=== PATIENT | female | born 1975 | race American Indian/Alaskan Native ===

== ENCOUNTER 2016-08-09 16:35 | Emergency (ER) | payer MEDICAID, OTHER ==
[2016-08-09 17:17] VITALS: BP 133/90
--- NOTE | 2016-08-09 17:41 | Emergency Department Report ---
ED General Adult HPI - General Chief complaint: Extremity Injury, Lower Stated complaint: LEFT ANKLE/SWOLLEN/ PREV BROKEN IN SUMMER Time Seen by Provider: 08/09/16 17:21 Source: patient Mode of arrival: Ambulatory Limitations: No Limitations - History of Present Illness Initial comments: 41 year old female presents with left ankle pain for past 2 days without injury. states that she had broken her left ankle about 7 months ago and had surgery. denies new injury. denies taking medication. - Related Data Previous Rx's Medication Instructions Recorded Last Taken Type Vit-Fe Fumar-FA [ 1 each PO QDAY #30 tablet 01/03/14 Unknown Rx Vitamin] metroNIDAZOLE [Flagyl] 500 mg PO Q12HR #14 tab 01/17/16 Unknown Rx traMADol [Ultram 50 MG tab] 50 mg PO Q6HR PRN #14 tablet 08/09/16 Unknown Rx Allergies Allergy/AdvReac Type Severity Reaction Status Date / Time amoxicillin trihydrate AdvReac Swelling Verified 01/03/14 01:11 [From Amoxil] ED Review of Systems ROS: Stated complaint: LEFT ANKLE/SWOLLEN/ PREV BROKEN IN SUMMER Other details as noted in HPI Constitutional: denies: chills, fever Eyes: denies: eye pain, eye discharge, vision change ENT: denies: ear pain, throat pain Respiratory: denies: cough, shortness of breath, wheezing Cardiovascular: denies: chest pain, palpitations Endocrine: no symptoms reported Gastrointestinal: denies: abdominal pain, nausea, diarrhea Genitourinary: denies: urgency, dysuria, discharge Musculoskeletal: arthralgia. denies: back pain, joint swelling Skin: denies: rash, lesions Neurological: denies: headache, weakness, paresthesias Psychiatric: denies: anxiety, depression Hematological/Lymphatic: denies: easy bleeding, easy bruising ED Past Medical Hx - Past Medical History Previous Medical History?: Yes Hx Asthma: Yes - Surgical History Past Surgical History?: Yes Additional Surgical History: D&C,TUBAL LIGATION - Social History Smoking Status: Current Every Day Smoker Substance Use Type: None - Medications Home Medications: Home Medications Medication Instructions Recorded Confirmed Last Taken Type Vit-Fe Fumar-FA [ 1 each PO QDAY #30 tablet 01/03/14 Unknown Rx Vitamin] metroNIDAZOLE [Flagyl] 500 mg PO Q12HR #14 tab 01/17/16 Unknown Rx traMADol [Ultram 50 MG tab] 50 mg PO Q6HR PRN #14 tablet 08/09/16 Unknown Rx ED Physical Exam - General Limitations: No Limitations General appearance: alert, in no apparent distress - Head Head exam: Present: atraumatic, normocephalic - Eye Eye exam: Present: normal appearance - ENT ENT exam: Present: mucous membranes moist - Neck Neck exam: Present: normal inspection - Respiratory Respiratory exam: Present: normal lung sounds bilaterally. Absent: respiratory distress - Cardiovascular Cardiovascular Exam: Present: regular rate, normal rhythm. Absent: systolic murmur, diastolic murmur, rubs, gallop - GI/Abdominal GI/Abdominal exam: Present: soft, normal bowel sounds - Extremities Exam Extremities exam: Present: normal inspection, other (left ankle mild swelling and tenderness. full rom. no erythema.) - Back Exam Back exam: Present: normal inspection - Neurological Exam Neurological exam: Present: alert, oriented X3 - Psychiatric Psychiatric exam: Present: normal affect, normal mood - Skin Skin exam: Present: warm, dry, intact, normal color. Absent: rash ED Course Vital Signs 08/09/16 17:14 Temperature 98.5 F Pulse Rate 88 Respiratory 16 Rate Blood Pressure 133/90 O2 Sat by Pulse 100 Oximetry ED Medical Decision Making - Medical Decision Making patient in NAD at this time. VSS for DC. Critical care attestation.: If time is entered above; I have spent that time in minutes in the direct care of this critically ill patient, excluding procedure time. ED Disposition Clinical Impression: Left ankle pain Disposition: DISCHARGED TO HOME OR SELFCARE Is pt being admited?: No Does the pt Need Aspirin: No Condition: Good Instructions: Arthralgia (ED) Prescriptions: traMADol [Ultram 50 MG tab] 50 mg PO Q6HR PRN #14 tablet PRN Reason: Pain Referrals: SONIA ZAVALETA MD [Staff Physician] - 3-5 Days Forms: Work/School Release Form(ED) Time of Disposition: 17:42
== END 2016-08-09 18:45 | disposition home or self-care (01) ==
LOC: ED 16:35
DX: M25.572 Pain in left ankle and joints of left foot (principal); J45.909 Unspecified asthma, uncomplicated; F17.200 Nicotine dependence, unspecified, uncomplicated; Z88.1 Allergy status to other antibiotic agents
CPT/HCPCS: 99282

== ENCOUNTER 2016-11-02 05:10 | Emergency (ER) | payer SELFPAY ==
[2016-11-02 05:40] LABS: Basophils % (Auto) 0.4 % (0.0-1.8); Eosinophils % (Auto) 1.8 % (0.0-4.3); Hematocrit 32.6 % (30.3-42.9); Hemoglobin 10.8 gm/dl (10.1-14.3); Mean Corpuscular HGB Conc 33 % (30-34); Mean Corpuscular Hemoglobin 24 pg (28-32); Mean Corpuscular Volume 72 fl (79-97); Platelet Count 234 K/mm3 (140-440); Red Blood Count 4.51 M/mm3 (3.65-5.03); White Blood Count 5.9 K/mm3 (4.5-11.0)
[2016-11-02 05:57] LABS: Alanine Aminotransferase 14 units/L (7-56); Albumin 3.8 g/dL (3.9-5); Albumin/Globulin Ratio 1.3 %; Alkaline Phosphatase 69 units/L (35-129); Anion Gap 16 mmol/L; BUN/Creatinine Ratio 12.85; Blood Urea Nitrogen 9 mg/dL (7-17); Calcium 8.8 mg/dL (8.4-10.2); Carbon Dioxide 24 mmol/L (22-30); Chloride 104.6 mmol/L (98-107); Glucose 118 mg/dL (65-100); Lipase 51 units/L (13-60); Potassium 3.6 mmol/L (3.6-5.0); Sodium 141 mmol/L (137-145); Total Protein 6.8 g/dL (6.3-8.2)
--- NOTE | 2016-11-02 06:35 | Emergency Department Report ---
ED Abdominal Pain HPI - General Chief Complaint: Abdominal Pain Stated Complaint: ABD PAIN Time Seen by Provider: 11/02/16 06:34 Source: patient Mode of arrival: Ambulatory Limitations: No Limitations - History of Present Illness Initial Comments: Patient complains of vague lower abdominal pain which is associated with this cycle bleeding. She states that she has heavy periods in general. She does not have a bag printer. She came by EMS yesterday for further care and evaluation. She denies fever or chills. She is not nauseated. The pain is subsided chest at the time of my encounter. -: Gradual, hour(s) Location: LLQ, RLQ Radiation: none Migration to: no migration Severity: moderate Severity scale (0 -10): 5 Quality: cramping Consistency: intermittent, now resolved Improves With: nothing Worsens With: nothing Associated Symptoms: denies other symptoms - Related Data Home Medications Medication Instructions Recorded Confirmed Last Taken Naproxen Sodium [Aleve TAB] 220 mg PO Q6H PRN 11/02/16 11/02/16 11/02/16 Allergies Allergy/AdvReac Type Severity Reaction Status Date / Time amoxicillin trihydrate AdvReac Swelling Verified 01/03/14 01:11 [From Amoxil] ED Review of Systems ROS: Stated complaint: ABD PAIN Other details as noted in HPI Constitutional: denies: chills, fever Eyes: denies: eye pain, eye discharge, vision change ENT: denies: ear pain, throat pain Respiratory: denies: cough, shortness of breath, wheezing Cardiovascular: denies: chest pain, palpitations Endocrine: no symptoms reported Gastrointestinal: as per HPI, abdominal pain. denies: nausea, diarrhea Genitourinary: denies: urgency, dysuria, discharge Musculoskeletal: denies: back pain, joint swelling, arthralgia Skin: denies: rash, lesions Neurological: denies: headache, weakness, paresthesias Psychiatric: denies: anxiety, depression Hematological/Lymphatic: denies: easy bleeding, easy bruising ED Past Medical Hx - Past Medical History Previous Medical History?: Yes Hx Asthma: Yes - Surgical History Past Surgical History?: Yes Additional Surgical History: D&C,TUBAL LIGATION - Social History Smoking Status: Current Every Day Smoker Substance Use Type: Alcohol - Medications Home Medications: Home Medications Medication Instructions Recorded Confirmed Last Taken Type Naproxen Sodium [Aleve TAB] 220 mg PO Q6H PRN 11/02/16 11/02/16 11/02/16 History ED Physical Exam - General Limitations: No Limitations General appearance: alert, in no apparent distress - Head Head exam: Present: atraumatic, normocephalic - Eye Eye exam: Present: normal appearance. Absent: scleral icterus - ENT ENT exam: Present: mucous membranes moist - Neck Neck exam: Present: normal inspection - Respiratory Respiratory exam: Present: normal lung sounds bilaterally. Absent: respiratory distress - Cardiovascular Cardiovascular Exam: Present: regular rate, normal rhythm. Absent: systolic murmur, diastolic murmur, rubs, gallop - GI/Abdominal GI/Abdominal exam: Present: soft, normal bowel sounds. Absent: distended, tenderness, guarding, rebound, rigid - Extremities Exam Extremities exam: Present: normal inspection - Back Exam Back exam: Present: normal inspection - Neurological Exam Neurological exam: Present: alert, oriented X3, CN II-XII intact. Absent: motor sensory deficit - Psychiatric Psychiatric exam: Present: normal affect, normal mood - Skin Skin exam: Present: warm, dry, intact, normal color. Absent: rash ED Course Vital Signs 11/02/16 11/02/16 05:12 06:10 Temperature 98.8 F Pulse Rate 79 Respiratory 20 18 Rate Blood Pressure 135/89 [Right] O2 Sat by Pulse 100 97 Oximetry - Reevaluation(s) Reevaluation #1: Patient given analgesia. She Continues to look clinically well. She is discharged in stable condition to follow up with a bag printer. 11/02/16 10:00 ED Medical Decision Making - Lab Data Result diagrams: 11/02/16 05:13 11/02/16 05:13 Laboratory Results - last 24 hr 11/02/16 11/02/16 11/02/16 05:13 05:13 05:13 WBC 5.9 RBC 4.51 Hgb 10.8 Hct 32.6 MCV 72 L MCH 24 L MCHC 33 RDW 20.0 H Plt Count 234 Lymph % (Auto) 39.4 H [place] % (Auto) 12.0 H Eos % (Auto) 1.8 Baso % (Auto) 0.4 Lymph # 2.3 [place] # 0.7 Eos # 0.1 Baso # 0.0 Seg Neutrophils % 46.4 Seg Neutrophils # 2.8 Sodium 141 Potassium 3.6 Chloride 104.6 Carbon Dioxide 24 Anion Gap 16 BUN 9 Creatinine 0.7 Estimated GFR > 60 BUN/Creatinine Ratio 12.85 Glucose 118 H Calcium 8.8 Total Bilirubin 0.20 AST 16 ALT 14 Alkaline Phosphatase 69 Total Protein 6.8 Albumin 3.8 L Albumin/Globulin Ratio 1.3 Lipase 51 HCG, Qual Negative - Radiology Data interpreted by me: Ultrasound showed ovarian cyst bilaterally but no free or cul-de-sac fluid. Critical care attestation.: If time is entered above; I have spent that time in minutes in the direct care of this critically ill patient, excluding procedure time. ED Disposition Clinical Impression: Dysfunctional uterine bleeding Ovarian cyst Qualifiers: Laterality: bilateral Qualified Code(s): N83.201 - Unspecified ovarian cyst, right side; N83.202 - Unspecified ovarian cyst, left side Disposition: DISCHARGED TO HOME OR SELFCARE Is pt being admited?: No Does the pt Need Aspirin: No Condition: Stable Instructions: Abdominal Pain (ED), Ovarian Cyst (ED) Additional Instructions: Rx as needed for pain. Return to the emergency department any acute change or problem. Follow-up with gynecology referral. Referrals: PRIMARY CARE [Primary Care Provider] - 3-5 Days Time of Disposition: 10:03
[2016-11-02] MEDS ORDERED: ZOFRAN IV ONE (06:54)
[2016-11-02] MEDS ORDERED: MORPHINE IV ONE (06:54)
[2016-11-02 07:01] LABS: Bilirubin,Urine NEG (Negative); Blood,Urine LG (Negative); Ketones,Urine NEG (Negative); Leukocyte Esterase,Urine NEG (Negative); Nitrite,Urine NEG (Negative)
--- NOTE | 2016-11-02 09:48 | Ultrasound Report ---
Transabdominal and transvaginal pelvic ultrasound. History: Pelvic pain. Findings: The uterus is normal in size and configuration. The endometrial echo is normal measuring 8.7 mm in thickness. An 8 mm cyst is seen anterior to the cervix. The ovaries are normal in size. There is a 1 cm cyst in the left ovary. In the right ovary, there is a 2 cm complex lesion probably representing complex cysts. There is no fluid within the cul-de-sac. Impression: 1 cm left ovarian cyst. A complex cyst measuring 2 cm in diameter is seen in the right ovary.
[2016-11-02 10:22] VITALS: BP 109/59
== END 2016-11-02 10:53 | disposition home or self-care (01) ==
LOC: ED 05:10
DX: N83.201 Unspecified ovarian cyst, right side (principal); N93.8 Other specified abnormal uterine and vaginal bleeding; J45.909 Unspecified asthma, uncomplicated; F17.200 Nicotine dependence, unspecified, uncomplicated; Z98.890 Other specified postprocedural states; Z98.51 Tubal ligation status; Z88.1 Allergy status to other antibiotic agents
CPT/HCPCS: 36415; 76830; 76856; 80053; 81001; 83690; 84703; 85025; 96374; 96375; 99284; J2270; J2405

== ENCOUNTER 2016-12-09 20:15 | Emergency (ER) | payer SELFPAY ==
[2016-12-10] MEDS ORDERED: CLEOCIN PO ONE (00:45)
[2016-12-10] MEDS ORDERED: TYLENOL #3 PO ONE (00:45)
--- NOTE | 2016-12-10 00:46 | Emergency Department Report ---
ED ENT HPI - General Chief complaint: Dental/Oral Stated complaint: ORAL/FACIAL SWELLING Time Seen by Provider: 12/10/16 00:35 Source: patient Mode of arrival: Ambulatory Limitations: No Limitations - History of Present Illness Initial comments: 41-year-old female past medical history periodontal disease, asthma presents with complaint of left-sided toothache 2 days. Patient states that she has multiple severe cavities which have yet to be addressed by a dentist. States she has a appointment within the next 2 weeks with a dentist. Patient speaking in full sentences states she has had slight pus drainage from in her left lower gum region. Mild visible facial swelling on left side. No trismus no stridor patient denies any difficulty swallowing or difficulty speaking. MD complaint: tooth pain Onset/Timin -: days(s) Location: tooth # (20) 1 - midl swelling here, severely caried teeth Severity scale (0 -10): 6 Quality: aching Consistency: constant Improves with: none Worsens with: eating Context- Dental: history of dental caries, poor dental care Associated Symptoms: gum swelling - Related Data Previous Rx's Medication Instructions Recorded Last Taken Type Acetaminophen/Codeine [Tylenol 1 tab PO Q6H PRN #14 tab 12/10/16 Unknown Rx /Codeine # 3 tab] Chlorhexidine Mouthwash [Peridex] 118 ml MM BID #1 bottle 12/10/16 Unknown Rx Clindamycin [Clindamycin CAP] 300 mg PO Q6H #28 capsule 12/10/16 Unknown Rx Ibuprofen [Motrin] 800 mg PO Q8HR PRN #30 tablet 12/10/16 Unknown Rx Allergies Allergy/AdvReac Type Severity Reaction Status Date / Time amoxicillin trihydrate AdvReac Swelling Verified 01/03/14 01:11 [From Amoxil] ED Dental HPI - General Chief complaint: Dental/Oral Stated complaint: ORAL/FACIAL SWELLING Time Seen by Provider: 12/10/16 00:35 Source: patient Mode of arrival: Ambulatory Limitations: No Limitations - Related Data Previous Rx's Medication Instructions Recorded Last Taken Type Acetaminophen/Codeine [Tylenol 1 tab PO Q6H PRN #14 tab 12/10/16 Unknown Rx /Codeine # 3 tab] Chlorhexidine Mouthwash [Peridex] 118 ml MM BID #1 bottle 12/10/16 Unknown Rx Clindamycin [Clindamycin CAP] 300 mg PO Q6H #28 capsule 12/10/16 Unknown Rx Ibuprofen [Motrin] 800 mg PO Q8HR PRN #30 tablet 12/10/16 Unknown Rx Allergies Allergy/AdvReac Type Severity Reaction Status Date / Time amoxicillin trihydrate AdvReac Swelling Verified 01/03/14 01:11 [From Amoxil] ED Review of Systems ROS: Stated complaint: ORAL/FACIAL SWELLING Other details as noted in HPI Constitutional: denies: chills, fever Eyes: denies: eye pain, eye discharge, vision change ENT: dental pain. denies: ear pain, throat pain Respiratory: denies: cough, shortness of breath, wheezing Cardiovascular: denies: chest pain, palpitations Endocrine: no symptoms reported Gastrointestinal: denies: abdominal pain, nausea, diarrhea Genitourinary: denies: urgency, dysuria, discharge Musculoskeletal: denies: back pain, joint swelling, arthralgia Skin: denies: rash, lesions Neurological: denies: headache, weakness, paresthesias Psychiatric: denies: anxiety, depression Hematological/Lymphatic: denies: easy bleeding, easy bruising ED Past Medical Hx - Past Medical History Previous Medical History?: Yes Hx Asthma: Yes - Surgical History Past Surgical History?: Yes Additional Surgical History: D&C,TUBAL LIGATION - Social History Smoking Status: Current Every Day Smoker Substance Use Type: None - Medications Home Medications: Home Medications Medication Instructions Recorded Confirmed Last Taken Type Acetaminophen/Codeine [Tylenol 1 tab PO Q6H PRN #14 tab 12/10/16 Unknown Rx /Codeine # 3 tab] Chlorhexidine Mouthwash [Peridex] 118 ml MM BID #1 bottle 12/10/16 Unknown Rx Clindamycin [Clindamycin CAP] 300 mg PO Q6H #28 capsule 12/10/16 Unknown Rx Ibuprofen [Motrin] 800 mg PO Q8HR PRN #30 tablet 12/10/16 Unknown Rx ED Physical Exam - General Limitations: No Limitations General appearance: alert, in no apparent distress - Head Head exam: Present: atraumatic, normocephalic - Expanded Head Exam Expanded 1 - mild swelling here - Eye Eye exam: Present: normal appearance - ENT ENT exam: Present: mucous membranes moist - Expanded ENT Exam Expanded Teeth exam: Present: dental caries, dental tenderness # (20, 19), gingival enlargement, other (no clinical signs of ludwigs angina, no tenderness floor of mouth) 1 - Dental Tenderness, Other (gumline swelling) - Neck Neck exam: Present: normal inspection, full ROM - Respiratory Respiratory exam: Present: normal lung sounds bilaterally. Absent: respiratory distress - Cardiovascular Cardiovascular Exam: Present: regular rate, normal rhythm. Absent: systolic murmur, diastolic murmur, rubs, gallop - GI/Abdominal GI/Abdominal exam: Present: soft, normal bowel sounds - Extremities Exam Extremities exam: Present: normal inspection - Back Exam Back exam: Present: normal inspection - Neurological Exam Neurological exam: Present: alert, oriented X3 - Psychiatric Psychiatric exam: Present: normal affect, normal mood - Skin Skin exam: Present: warm, dry, intact, normal color. Absent: rash ED Course Vital Signs 12/09/16 20:44 Temperature 99.7 F H Pulse Rate 95 H Respiratory 18 Rate Blood Pressure 140/95 O2 Sat by Pulse 98 Oximetry ED Medical Decision Making - Medical Decision Making A/P: Dental cavity, dental abscess 1-Motrin, Tylenol 3, clindamycin 7 day course, Peridex mouthwash 2- no ludwigs angina on clinical exam, abscess already spontaneously draining. patient advised to follow up as soon as possible for dental cavity. I advised patient that lack of follow-up and untreated dental cavity can result in infection to develop in face and jaw and if left untreated can progress to sepsis and become lethal. Patient understood these instructions and agreed to follow-up on outpatient basis with dentist as soon as possible. 3-advised to return to ED [facility] for any significant bleeding pus drainage from oral cavity inability to tolerate by mouth, dyspnea shortness of breath muffled voice and/or stridor Critical care attestation.: If time is entered above; I have spent that time in minutes in the direct care of this critically ill patient, excluding procedure time. ED Disposition Clinical Impression: Dental abscess, Dental cavities Disposition: TO HOME OR SELFCARE Is pt being admited?: No Does the pt Need Aspirin: No Condition: Stable Instructions: Dental Abscess (ED), Dental Caries (ED), Toothache (ED) Additional Instructions: [email or web address] Prescriptions: Acetaminophen/Codeine [Tylenol /Codeine # 3 tab] 1 tab PO Q6H PRN #14 tab PRN Reason: Toothache Chlorhexidine Mouthwash [Peridex] 118 ml MM BID #1 bottle Clindamycin [Clindamycin CAP] 300 mg PO Q6H #28 capsule Ibuprofen [Motrin] 800 mg PO Q8HR PRN #30 tablet PRN Reason: Toothache Referrals: [facility] [Outside] - 3-5 Days Forms: Work/School Release Form(ED) Time of Disposition: 00:49
[2016-12-10 01:19] VITALS: BP 148/90
== END 2016-12-10 01:19 | disposition home or self-care (01) ==
LOC: ED 20:15
DX: K04.7 Periapical abscess without sinus (principal); K02.9 Dental caries, unspecified; J45.909 Unspecified asthma, uncomplicated; F17.200 Nicotine dependence, unspecified, uncomplicated; Z88.1 Allergy status to other antibiotic agents
CPT/HCPCS: 99282

== ENCOUNTER 2019-01-15 06:04 | Emergency (ER) | payer OTHER ==
[2019-01-15 06:31] VITALS: BP 135/94
[2019-01-15 07:02] LABS: Basophils # (Auto) 0.1 K/mm3 (0.0-0.1); Basophils % (Auto) 0.8 % (0.0-1.8); Eosinophils # (Auto) 0.1 K/mm3 (0.0-0.4); Eosinophils % (Auto) 1.2 % (0.0-4.3); Hematocrit 30.1 % (30.3-42.9); Hemoglobin 10.3 gm/dl (10.1-14.3); Lymphocytes # (Auto) 1.9 K/mm3 (1.2-5.4); Lymphocytes % (Auto) 23.4 % (13.4-35.0); Mean Corpuscular HGB Conc 34 % (30-34); Monocytes # (Auto) 0.6 K/mm3 (0.0-0.8); Monocytes % (Auto) 7.9 % (0.0-7.3); Platelet Count 266 K/mm3 (140-440); Red Blood Count 4.46 M/mm3 (3.65-5.03)
[2019-01-15 07:04] LABS: Mean Corpuscular Volume 68 fl (79-97); Red Cell Distribution Width 20.7 % (13.2-15.2)
[2019-01-15 07:23] LABS: BUN/Creatinine Ratio 4; Blood Urea Nitrogen 3 mg/dL (7-17); Calcium 9.3 mg/dL (8.4-10.2); Hemolysis Index 8
--- NOTE | 2019-01-15 09:03 | Emergency Department Report ---
ED Chest Pain HPI - General Chief Complaint: Chest Pain Stated Complaint: CHEST PAIN Time Seen by Provider: 01/15/19 08:34 Source: patient Mode of arrival: Ambulatory Limitations: No Limitations - History of Present Illness Initial Comments: 44-year-old female presents to the ED with complaint of cough, chest pain, shortness of breath. Patient states cough has been present for approximately 3 weeks. Denies fever. Patient states over the last 3 or 4 days cough has worsened. She reports associated mild shortness of breath and left upper chest pain. Patient says the pain feels like "a contraction" but states that it only lasts for a few seconds at a time. Pain is worse with movement or palpation. Patient reports swelling to lower legs, denies pain. Patient reports history of hypertension. Tobacco use reported. Patient does have a PCP. MD Complaint: chest pain -: days(s) (3) Onset: during rest Pain Location: left chest Pain Radiation: none Severity: mild Quality: squeezing Consistency: intermittent Improves With: nothing Worsens With: nothing, palpation, movement re: dyspnea. denies: nausea, vomting, diaphoresis Other Symptoms: cough, leg swelling - Related Data Previous Rx's Medication Instructions Recorded Last Taken Type Acetaminophen/Codeine [Tylenol 1 tab PO Q6H PRN #14 tab 12/10/16 Unknown Rx /Codeine # 3 tab] Chlorhexidine Mouthwash [Peridex] 118 ml MM BID #1 bottle 12/10/16 Unknown Rx Clindamycin [Clindamycin CAP] 300 mg PO Q6H #28 capsule 12/10/16 Unknown Rx Ibuprofen [Motrin] 800 mg PO Q8HR PRN #30 tablet 12/10/16 Unknown Rx Naproxen [Naprosyn] 500 mg PO BID #20 tablet 01/15/19 Unknown Rx traMADol [Ultram] 50 mg PO Q6HR PRN #7 tablet 01/15/19 Unknown Rx Allergies Allergy/AdvReac Type Severity Reaction Status Date / Time amoxicillin trihydrate AdvReac Swelling Verified 01/03/14 01:11 [From Amoxil] Heart Score - HEART Score History: Slightly suspicious EKG: Normal Age: < 45 Risk factors: 1-2 risk factors Troponin: < normal limit HEART Score: 1 ED Review of Systems ROS: Stated complaint: CHEST PAIN Other details as noted in HPI Comment: All other systems reviewed and negative Constitutional: denies: chills, fever Respiratory: cough, shortness of breath Cardiovascular: chest pain Musculoskeletal: other (reports leg swelling) ED Past Medical Hx - Past Medical History Previous Medical History?: Yes Hx Hypertension: Yes Hx Asthma: Yes - Surgical History Past Surgical History?: Yes Hx Cholecystectomy: Yes Additional Surgical History: D&C,TUBAL LIGATION - Social History Smoking Status: Current Every Day Smoker Substance Use Type: None - Medications Home Medications: Home Medications Medication Instructions Recorded Confirmed Last Taken Type Acetaminophen/Codeine [Tylenol 1 tab PO Q6H PRN #14 tab 12/10/16 Unknown Rx /Codeine # 3 tab] Chlorhexidine Mouthwash [Peridex] 118 ml MM BID #1 bottle 12/10/16 Unknown Rx Clindamycin [Clindamycin CAP] 300 mg PO Q6H #28 capsule 12/10/16 Unknown Rx Ibuprofen [Motrin] 800 mg PO Q8HR PRN #30 tablet 12/10/16 Unknown Rx Naproxen [Naprosyn] 500 mg PO BID #20 tablet 01/15/19 Unknown Rx traMADol [Ultram] 50 mg PO Q6HR PRN #7 tablet 01/15/19 Unknown Rx ED Physical Exam - General Limitations: No Limitations General appearance: alert, in no apparent distress - Head Head exam: Present: atraumatic, normocephalic - Eye Eye exam: Present: normal appearance, PERRL, EOMI - ENT ENT exam: Present: mucous membranes moist - Neck Neck exam: Present: normal inspection - Respiratory Respiratory exam: Present: normal lung sounds bilaterally, chest wall tenderness (left upper anterior chest wall). Absent: respiratory distress - Cardiovascular Cardiovascular Exam: Present: regular rate, normal rhythm - GI/Abdominal GI/Abdominal exam: Present: soft. Absent: distended, tenderness - Extremities Exam Extremities exam: Present: other (1+ edema BLE) - Neurological Exam Neurological exam: Present: alert, oriented X3, CN II-XII intact. Absent: motor sensory deficit - Psychiatric Psychiatric exam: Present: normal affect, normal mood - Skin Skin exam: Present: warm, dry, intact, normal color ED Course Vital Signs 01/15/19 06:19 Temperature 98.2 F Pulse Rate 83 Respiratory 16 Rate Blood Pressure 135/94 O2 Sat by Pulse 99 Oximetry ED Medical Decision Making - Lab Data Result diagrams: 01/15/19 06:43 07/16/19 06:43 - EKG Data -: EKG Interpreted by Me EKG shows normal: sinus rhythm, axis, intervals, QRS complexes, ST-T waves Rate: normal - EKG Data Interpretation: no acute changes - Radiology Data Radiology results: report reviewed, image reviewed - Medical Decision Making 44 yo F w/ chest pain. EKG normal. Troponin normal. D-dimer sent and found to be mildly elevated, so CTA Chest was done which was negative. Pt w/ chest wall tenderness and several wk hx of cough. Likely costochondritis. Will d/c at this time. Outpt f/u advised. Return precautions given. - Differential Diagnosis chest wall pain, PE, pulmonary edema, ACS Critical care attestation.: If time is entered above; I have spent that time in minutes in the direct care of this critically ill patient, excluding procedure time. 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 Please follow up with a recoil spring winder for further evaluation. Prescriptions: Naproxen [Naprosyn] 500 mg PO BID #20 tablet traMADol [Ultram] 50 mg PO Q6HR PRN #7 tablet PRN Reason: Pain Referrals: ZAIN MYERS MD [Primary Care Provider] - 3-5 Days ADAMS BASS MD [Staff Physician] - 3-5 Days PRIMARY CARE, [Referring] - 3-5 Days Forms: Work/School Release Form(ED) Time of Disposition: 12:35
--- NOTE | 2019-01-15 09:12 | XRay Report ---
CHEST 2 VIEWS INDICATION / CLINICAL INFORMATION: cough. COMPARISON: None available. FINDINGS: SUPPORT DEVICES: None. HEART / MEDIASTINUM: No significant abnormality. LUNGS / PLEURA: No significant pulmonary or pleural abnormality. No pneumothorax. ADDITIONAL FINDINGS: No significant additional findings. IMPRESSION: 1. No acute findings. Signer Name: Rogers Kerr MD Signed: 01/15/2019 9:08 AM Workstation Name: [id number]
[2019-01-15 09:15] LABS: INR 1.08 (0.87-1.13)
[2019-01-15 09:16] LABS: Partial Thromboplastin Time 23.5 Sec. (24.2-36.6)
--- NOTE | 2019-01-15 12:31 | Cat Scan Report ---
CTA CHEST WITH CONTRAST INDICATION : Chest pain and shortness of breath for 5 days. TECHNIQUE: Axial imaging performed through the chest, with contrast bolus timing set to maximize opa cification of the pulmonary arteries. Sagittal and coronal reformatted images. 3-plane MIP reformatte d images were obtained. All CT scans at this location are performed using CT dose reduction for ALAR A by means of automated exposure control. 100 mL of intravenous contrast administered. COMPARISON: FINDINGS: Bolus: Contrast bolus timing is adequate. PTE: No filling defect is present to suggest PTE. Mediastinum: Heart and great vessels appear normal. No pathologic mediastinal adenopathy. Lungs: There are numerous relatively thin-walled cysts throughout both upper lung zones. Cysts range from a few millimeters to 2 cm in diameter. There is no evidence for suspicious nodule, mass or infi ltrate. No pleural effusion or pneumothorax. Upper abdomen: Limited imaging of the upper abdomen shows nothing acute. Bones: No significant abnormality IMPRESSION: No pulmonary embolus is identified. 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 This does not have the typical appearance of emphysematous changes. Considerations include eosinophilic granulo ma of the lung, histiocytosis X, tuberous sclerosis, and lymphangioleiomyomatosis. Other etiologies a re not excluded. Signer Name: Rob Mckeon Jr, MD Signed: 01/15/2019 12:27 PM Workstation Name: [id number]
== END 2019-01-15 12:53 | disposition home or self-care (01) ==
LOC: ED 06:04
DX: R07.89 Other chest pain (principal); R05 Cough; R06.02 Shortness of breath; J45.909 Unspecified asthma, uncomplicated; I10 Essential (primary) hypertension; Z90.49 Acquired absence of other specified parts of digestive tract; Z98.51 Tubal ligation status; F17.200 Nicotine dependence, unspecified, uncomplicated; Z88.1 Allergy status to other antibiotic agents; Z79.899 Other long term (current) drug therapy
CPT/HCPCS: 36415; 71046; 71275; 80048; 84484; 84703; 85025; 85379; 85610; 85730; 93005; 93010; 99285; Q9967

== ENCOUNTER 2020-04-22 22:00 | Emergency (ER) | payer OTHER ==
[2020-04-22 22:35] VITALS: BP 128/92
--- NOTE | 2020-04-23 03:46 | Emergency Department Report ---
ED Headache HPI - General Chief Complaint: Headache Stated Complaint: HEADACHE Time Seen by Provider: 04/23/20 02:04 - History of Present Illness Initial Comments: 42-year-old female resents emergency department complaining of a 5-day history of occipital headache that radiates to the right parietal region associated with eye twitchiness and occasional visual changes and nausea. She reports no vomiting reports no fever, chills, sweats no chest pain or palpitations. No palliative or provocative factors for the headache with exception of laying flat sometimes makes the headaches feel worse. She tried several [id number] remedies but has been unsuccessful. She reports no known history states this is one of the worst headaches that she has had and she does not get headaches frequently Quality: moderate, severe Head Injury Location: occipital, parietal Recent Head Trauma: no recent headache/trauma Associated Symptoms: denies: loss of consciousness, nasal congestion, seizures, sinus infection, stiff neck Allergies/Adverse Reactions: Allergies amoxicillin trihydrate [From Amoxil] Adverse Reaction (Verified 01/03/14 01:11) Swelling Home Medications: Ambulatory Orders Acetaminophen/Codeine [Tylenol /Codeine # 3 tab] 1 tab PO Q6H PRN #14 tab 12/10/16 Chlorhexidine Mouthwash [Peridex] 118 ml MM BID #1 bottle 12/10/16 Clindamycin [Clindamycin CAP] 300 mg PO Q6H #28 capsule 12/10/16 Ibuprofen [Motrin] 800 mg PO Q8HR PRN #30 tablet 12/10/16 Naproxen [Naprosyn] 500 mg PO BID #20 tablet 01/15/19 traMADoL [Ultram] 50 mg PO Q6HR PRN #7 tablet 01/15/19 Butalb/Acetaminophen/Caffeine [Fioricet 50-300-40 mg CAP] 1 cap PO Q8HR PRN #20 cap NS 04/23/20 ED Review of Systems ROS: Stated complaint: HEADACHE Other details as noted in HPI Comment: All other systems reviewed and negative ED Past Medical Hx - Past Medical History Previous Medical History?: Yes Hx Hypertension: Yes Hx Asthma: Yes - Surgical History Past Surgical History?: Yes Hx Cholecystectomy: Yes Additional Surgical History: D&C,TUBAL LIGATION - Social History Smoking Status: Current Every Day Smoker Substance Use Type: None - Medications Home Medications: Home Medications Medication Instructions Recorded Confirmed Last Taken Type Acetaminophen/Codeine [Tylenol 1 tab PO Q6H PRN #14 tab 12/10/16 Unknown Rx /Codeine # 3 tab] Chlorhexidine Mouthwash [Peridex] 118 ml MM BID #1 bottle 12/10/16 Unknown Rx Clindamycin [Clindamycin CAP] 300 mg PO Q6H #28 capsule 12/10/16 Unknown Rx Ibuprofen [Motrin] 800 mg PO Q8HR PRN #30 tablet 12/10/16 Unknown Rx Naproxen [Naprosyn] 500 mg PO BID #20 tablet 01/15/19 Unknown Rx traMADoL [Ultram] 50 mg PO Q6HR PRN #7 tablet 01/15/19 Unknown Rx Butalb/Acetaminophen/Caffeine 1 cap PO Q8HR PRN #20 cap NS 04/23/20 Unknown Rx [Fioricet 50-300-40 mg CAP] ED Physical Exam - General Limitations: No Limitations General appearance: alert, in no apparent distress - Head Head exam: Present: atraumatic, normocephalic - Eye Eye exam: Present: normal appearance. Absent: nystagmus Pupils: Present: other (Negative funduscopic examination) - ENT ENT exam: Present: mucous membranes moist - Neck Neck exam: Present: normal inspection - Respiratory Respiratory exam: Present: normal lung sounds bilaterally. Absent: respiratory distress - Cardiovascular Cardiovascular Exam: Present: regular rate, normal rhythm. Absent: systolic murmur, diastolic murmur, rubs, gallop - GI/Abdominal GI/Abdominal exam: Present: soft, normal bowel sounds - Extremities Exam Extremities exam: Present: normal inspection, normal capillary refill - Back Exam Back exam: Present: normal inspection. Absent: CVA tenderness (L) - Neurological Exam Neurological exam: Present: alert, oriented X3, CN II-XII intact, normal gait, other (Had some swaying of the gait stands with Romberg.). Absent: motor sensory deficit - Psychiatric Psychiatric exam: Present: normal affect, normal mood - Skin Skin exam: Present: warm, dry, intact, normal color. Absent: rash ED Course Vital Signs 04/22/20 22:34 Temperature 98.5 F Pulse Rate 83 Respiratory 18 Rate Blood Pressure 128/92 O2 Sat by Pulse 98 Oximetry - Reevaluation(s) Reevaluation #2: 04/23/20 06:48 Patient was resting in the room comfortably no acute distress easy to arouse normal cognizance of sound judgment ED Medical Decision Making - Lab Data Result diagrams: 04/23/20 04:14 04/23/20 04:14 - Medical Decision Making This patient presents with a headache most consistent with tension headache migraine headache. Differential diagnosis includes migraine versus tension type headache. No headache red flags. Neurologic exam without evidence of meningismus, focal neurologic findings.Based on the patient's history and physical there is very low clinical suspicion for significant intracranial pathology. The headache was NOT sudden onset, NOT maximal at onset, there are NO neurologic findings, the patient does NOT have a fever, the patient does NOT have any jaw claudication, the patient does NOT endorse a clotting disorder, patient DENIES any trauma or eye pain and the headache is NOT associated with dizziness or ataxia. Presentation not consistent with acute intracranial bleed to include SAH (lack of risk factors, headache history). Presentation not consistent with acute BARREL MA[employer]ER infection to include meningitis or brain abscess, Temporal arteritis unlikely, as is acute angle closure glaucoma given history and physical findings. Presentation not consistent with other acute, emergent causes of headache at this time. Plan to treat symptomatically with pain medication. No indication for imaging/LP at this time. Plan: pain medication, CT brain was normal but was done due to the characteristic and the onset of the headache without any acute intracranial pathology, serial reassessment Critical care attestation.: If time is entered above; I have spent that time in minutes in the direct care of this critically ill patient, excluding procedure time. ED Disposition Clinical Impression: Cephalgia Disposition: DC-01 TO HOME OR SELFCARE Is pt being admited?: No Does the pt Need Aspirin: No Condition: Stable Instructions: Acute Headache (ED) Additional Instructions: CT scan of the head was negative for any acute intracranial abnormality meaning was normal Prescriptions: Butalb/Acetaminophen/Caffeine [Fioricet 50-300-40 mg CAP] 1 cap PO Q8HR PRN #20 cap NS PRN Reason: Headache Referrals: ANNA COSME MD [Primary Care Provider] - 3-5 Days
[2020-04-23 04:41] LABS: Basophils % (Auto) 0.3 % (0.0-1.8); Eosinophils # (Auto) 0.1 K/mm3 (0.0-0.4); Eosinophils % (Auto) 2.1 % (0.0-4.3); Hematocrit 31.6 % (30.3-42.9); Hemoglobin 10.7 gm/dl (10.1-14.3); Lymphocytes # (Auto) 2.6 K/mm3 (1.2-5.4); Mean Corpuscular HGB Conc 34 % (30-34); Mean Corpuscular Volume 72 fl (79-97); Monocytes # (Auto) 0.6 K/mm3 (0.0-0.8); Monocytes % (Auto) 8.8 % (0.0-7.3); Platelet Count 274 K/mm3 (140-440); Red Blood Count 4.41 M/mm3 (3.65-5.03); Red Cell Distribution Width 20.1 % (13.2-15.2)
[2020-04-23 04:56] LABS: Alanine Aminotransferase 13 units/L (7-56); Albumin 4.1 g/dL (3.9-5); Blood Urea Nitrogen 9 mg/dL (7-17); Calcium 9.4 mg/dL (8.4-10.2); Hemolysis Index 10
[2020-04-23 04:58] LABS: BUN/Creatinine Ratio 15
--- NOTE | 2020-04-23 05:21 | Cat Scan Report ---
CT HEAD WITHOUT CONTRAST INDICATION: Patient complains of a headache TECHNIQUE: Axial slices were obtained through the head. Coronal and sagittal reformatted images were obtained. COMPARISON: None available. FINDINGS: There is no intracranial hemorrhage or extra-axial fluid collection. Ventricles, basilar cisterns, an d sulci appear within normal limits for age. There is no mass lesion or midline shift. No acute bob torial infarct is identified. Bone windows demonstrate no acute osseous abnormality. Paranasal sinuses and mastoid air cells appear clear. TECHNIQUE: All CT scans at this facility use dose modulation, iterative reconstruction, automated ex posure control, weight based dosing, when appropriate, to reduce radiation dose to as low as reasonab ly achievable. IMPRESSION: 1. No acute intracranial abnormality. Signer Name: Sameer Powell MD Signed: 04/23/2020 5:17 AM Workstation Name: [id number]
== END 2020-04-23 07:01 | disposition home or self-care (01) ==
LOC: ED 22:00
DX: R51.9 Headache, unspecified (principal); I10 Essential (primary) hypertension; J45.909 Unspecified asthma, uncomplicated; Z90.49 Acquired absence of other specified parts of digestive tract; Z98.51 Tubal ligation status; Z98.890 Other specified postprocedural states; F17.200 Nicotine dependence, unspecified, uncomplicated; Z79.1 Long term (current) use of non-steroidal anti-inflammatories (NSAID); Z79.2 Long term (current) use of antibiotics; Z79.899 Other long term (current) drug therapy; Z88.8 Allergy status to other drugs, medicaments and biological substances
CPT/HCPCS: 36415; 70450; 80053; 85025

== ENCOUNTER 2020-07-30 01:07 | Emergency (ER) | payer OTHER ==
[2020-07-30] MEDS ORDERED: ASPIRIN 325 MG TAB PO ONE (01:11)
[2020-07-30 01:47] LABS: Blood Urea Nitrogen 6 mg/dL (7-17); Calcium 9.2 mg/dL (8.4-10.2); Hemolysis Index 4
[2020-07-30 01:52] LABS: BUN/Creatinine Ratio 10
[2020-07-30 01:54] LABS: Basophils # (Auto) 0.1 K/mm3 (0.0-0.1); Basophils % (Auto) 0.5 % (0.0-1.8); Eosinophils # (Auto) 0.1 K/mm3 (0.0-0.4); Eosinophils % (Auto) 1.1 % (0.0-4.3); Hematocrit 32.6 % (30.3-42.9); Hemoglobin 10.9 gm/dl (10.1-14.3); Lymphocytes # (Auto) 3.3 K/mm3 (1.2-5.4); Lymphocytes % (Auto) 34.1 % (13.4-35.0); Mean Corpuscular HGB Conc 34 % (30-34); Mean Corpuscular Volume 71 fl (79-97); Monocytes % (Auto) 10.2 % (0.0-7.3); Platelet Count 265 K/mm3 (140-440); Red Blood Count 4.59 M/mm3 (3.65-5.03); Red Cell Distribution Width 19.3 % (13.2-15.2)
[2020-07-30] MEDS ORDERED: IPRATROPIUM/ALBUTEROL SULFATE 3 ML AMPUL.NEB IH ONE (02:06)
--- NOTE | 2020-07-30 02:06 | Emergency Department Report ---
ED Chest Pain HPI - General Chief Complaint: Chest Pain Stated Complaint: PRESSURE AND PAIN IN CHEST Time Seen by Provider: 07/30/20 01:55 Source: patient Mode of arrival: Ambulatory Limitations: No Limitations - History of Present Illness Initial Comments: This is a 45-year-old -[place] female presents to the emergency department with a complaint of some chest pain and shortness of breath that has been going on for the past 2 to 3 days. At first the patient says that she was having a burning sensation to the midsternal chest that she thought was acid reflux. She took some Tums without any relief. Over the past 24 hours the discomfort has been more of a pressure sensation. Overall it has been intermittent but says it was more constant this evening, which is what prompted her to come in and be seen. The shortness of breath worsens with any exertion. The chest pressure worsens with laying flat. She denies any fever, cough, lower extremity swelling, nausea, vomiting or diaphoresis. The patient is currently unable to rate the intensity of her symptoms as she says they "come and go." She is a tobacco smoker. She has a past medical history of asthma. The patient also has a family cardiac history as her brother had an CA in his late 40s. No recent travel or sick contacts at home. - Related Data Previous Rx's Medication Instructions Recorded Last Taken Type Acetaminophen/Codeine [Tylenol 1 tab PO Q6H PRN #14 tab 12/10/16 Unknown Rx /Codeine # 3 tab] Chlorhexidine Mouthwash [Peridex] 118 ml MM BID #1 bottle 12/10/16 Unknown Rx Clindamycin [Clindamycin CAP] 300 mg PO Q6H #28 capsule 12/10/16 Unknown Rx Ibuprofen [Motrin] 800 mg PO Q8HR PRN #30 tablet 12/10/16 Unknown Rx Naproxen [Naprosyn] 500 mg PO BID #20 tablet 01/15/19 Unknown Rx traMADoL [Ultram] 50 mg PO Q6HR PRN #7 tablet 01/15/19 Unknown Rx Butalb/Acetaminophen/Caffeine 1 cap PO Q8HR PRN #20 cap NS 04/23/20 Unknown Rx [Fioricet 50-300-40 mg CAP] Albuterol Mdi (or & Nicu Only) 2 puff IH QID PRN #8.5 gram 07/30/20 Unknown Rx [ProAir HFA Inhaler] Allergies Allergy/AdvReac Type Severity Reaction Status Date / Time amoxicillin trihydrate AdvReac Swelling Verified 01/03/14 01:11 [From Amoxil] Heart Score - HEART Score History: Slightly suspicious EKG: Normal Age: < 45 Risk factors: 1-2 risk factors Troponin: < normal limit HEART Score: 1 - Critical Actions Critical Actions: 0-3 pts:0.9-1.7%risk of adverse cardiac event.Candidate for discharge ED Review of Systems ROS: Stated complaint: PRESSURE AND PAIN IN CHEST Other details as noted in HPI Comment: All other systems reviewed and negative Constitutional: denies: chills, fever Eyes: denies: eye pain, vision change ENT: denies: ear pain, throat pain Respiratory: shortness of breath. denies: cough Cardiovascular: chest pain. denies: edema Gastrointestinal: denies: abdominal pain, vomiting Genitourinary: denies: dysuria, discharge Musculoskeletal: denies: back pain, arthralgia Skin: denies: rash, lesions Neurological: denies: headache, weakness ED Past Medical Hx - Past Medical History Previous Medical History?: Yes Hx Hypertension: Yes Hx Asthma: Yes - Surgical History Past Surgical History?: Yes Hx Cholecystectomy: Yes Additional Surgical History: D&C,TUBAL LIGATION - Social History Smoking Status: Current Every Day Smoker Substance Use Type: None - Medications Home Medications: Home Medications Medication Instructions Recorded Confirmed Last Taken Type Acetaminophen/Codeine [Tylenol 1 tab PO Q6H PRN #14 tab 12/10/16 Unknown Rx /Codeine # 3 tab] Chlorhexidine Mouthwash [Peridex] 118 ml MM BID #1 bottle 12/10/16 Unknown Rx Clindamycin [Clindamycin CAP] 300 mg PO Q6H #28 capsule 12/10/16 Unknown Rx Ibuprofen [Motrin] 800 mg PO Q8HR PRN #30 tablet 12/10/16 Unknown Rx Naproxen [Naprosyn] 500 mg PO BID #20 tablet 01/15/19 Unknown Rx traMADoL [Ultram] 50 mg PO Q6HR PRN #7 tablet 01/15/19 Unknown Rx Butalb/Acetaminophen/Caffeine 1 cap PO Q8HR PRN #20 cap NS 04/23/20 Unknown Rx [Fioricet 50-300-40 mg CAP] Albuterol Mdi (or & Nicu Only) 2 puff IH QID PRN #8.5 gram 07/30/20 Unknown Rx [ProAir HFA Inhaler] ED Physical Exam - General Limitations: No Limitations - Other Other exam information: GENERAL: The patient is well-developed well-nourished. HENT: Normocephalic. Atraumatic. Patient has moist mucous membranes. EYES: Extraocular motions are intact. NECK: Supple. Trachea is midline. CHEST/LUNGS: Clear to auscultation. There is no respiratory distress noted. HEART/CARDIOVASCULAR: Regular. There is no tachycardia. There is no murmur. ABDOMEN: Abdomen is soft, nontender. Patient has normal bowel sounds. There is no abdominal distention. SKIN: Skin is warm and dry. NEURO: The patient is awake, alert, and oriented. The patient is cooperative. The patient has no focal neurologic deficits. Normal speech. MUSCULOSKELETAL: There is no tenderness or deformity. There is no limitation range of motion. ED Course Vital Signs 07/30/20 07/30/20 07/30/20 01:10 02:25 02:37 Temperature 97.9 F Pulse Rate 91 H Pulse Rate [ 88 Bilateral Lower Lobe] Respiratory 12 18 Rate Respiratory 22 Rate [Bilateral Lower Lobe] Blood Pressure 141/91 Blood Pressure [Right] O2 Sat by Pulse 99 Oximetry 07/30/20 07/30/20 03:11 04:00 Temperature 98.4 F Pulse Rate 78 82 Pulse Rate [ Bilateral Lower Lobe] Respiratory 16 16 Rate Respiratory Rate [Bilateral Lower Lobe] Blood Pressure Blood Pressure 134/82 127/72 [Right] O2 Sat by Pulse 99 99 Oximetry VALENCIA score - Valencia Score Age > 65: (0) No Aspirin use within the Past 7 Days: (0) No 3 or more CAD Risk Factors: (0) No 2 or more Angina events in past 24 hrs: (1) Yes Known CAD with more than 50% Stenosis: (0) No Elevated Cardiac Markers: (0) No ST Deviation Greater than 0.5mm: (0) No VALENCIA Score: 1 ED Medical Decision Making - Lab Data Result diagrams: 07/30/20 01:13 07/30/20 01:13 Lab Results 07/30/20 07/30/20 07/30/20 Range/Units 01:13 01:13 03:43 WBC 9.6 (4.5-11.0) K/mm3 RBC 4.59 (3.65-5.03) M/mm3 Hgb 10.9 (10.1-14.3) gm/dl Hct 32.6 (30.3-42.9) % MCV 71 L (79-97) fl MCH 24 L (28-32) pg MCHC 34 (30-34) % RDW 19.3 H (13.2-15.2) % Plt Count 265 (140-440) K/mm3 Lymph % (Auto) 34.1 (13.4-35.0) % [place] % (Auto) 10.2 H (0.0-7.3) % Eos % (Auto) 1.1 (0.0-4.3) % Baso % (Auto) 0.5 (0.0-1.8) % Lymph # (Auto) 3.3 (1.2-5.4) K/mm3 [place] # (Auto) 1.0 H (0.0-0.8) K/mm3 Eos # (Auto) 0.1 (0.0-0.4) K/mm3 Baso # (Auto) 0.1 (0.0-0.1) K/mm3 Seg Neutrophils % 54.1 (40.0-70.0) % Seg Neutrophils # 5.2 (1.8-7.7) K/mm3 Sodium 137 (137-145) mmol/L Potassium 3.9 (3.6-5.0) mmol/L Chloride 103.5 (98-107) mmol/L Carbon Dioxide 23 (22-30) mmol/L Anion Gap 14 mmol/L BUN 6 L (7-17) mg/dL Creatinine 0.6 (0.6-1.2) mg/dL Estimated GFR > 60 ml/min BUN/Creatinine Ratio 10 % Glucose 92 (65-100) mg/dL Calcium 9.2 (8.4-10.2) mg/dL Troponin T < 0.010 < 0.010 (0.00-0.029) ng/mL - EKG Data -: EKG Interpreted by Nv EKG shows normal: sinus rhythm, axis, intervals, QRS complexes, ST-T waves Rate: normal - EKG Data When compared to previous EKG there are: no significant change Interpretation: normal EKG, unchanged when compared t (01/15/19) - Radiology Data Radiology results: image reviewed interpreted by me: Chest x-ray does not show any acute process. There are no pleural effusions, obvious pneumonia and there is no pneumothorax. No significant cardiomegaly. - Medical Decision Making This patient presents with a 2-day history of some intermittent shortness of breath and chest pain. On examination the patient does not appear in any respiratory or acute distress. Heart and lung sounds are normal to auscultation. EKG does not have any morphology consistent with ST elevation myocardial infarction or any dysrhythmia. Chest x-ray does not show any pneumonia, pleural effusions, pneumothorax, focal consolidation, or any other acute process. The patient's labs have been unremarkable including CBC, metabolic panel and neg ative troponins x2. Patient was given a DuoNeb breathing treatment and upon reevaluation she says t hat she is feeling greatly improved. She was reevaluated multiple times over multiple hours and is currently asymptomatic. Vital signs have been reassuring throughout her ED course including being a febrile. The patient is low on the heart and VALENCIA score. She is low on the Wells score criteria and negative on the pulmonary embolism rule out criteria. For all these reasons the patient appears safe for discharge home at this time. Her contact information has been sent over to the [facility], and someone from their office should be contacting her shortly for close outpat ient follow-up as part of our [facility] low risk chest pain protocol. Critical Care Time: No Critical care attestation.: If time is entered above; I have spent that time in minutes in the direct care of this critically ill patient, excluding procedure time. ED Disposition Clinical Impression: Shortness of breath Chest pain Qualifiers: Chest pain type: unspecified Qualified Code(s): R07.9 - Chest pain, unspecified Disposition: DC-01 TO HOME OR SELFCARE Is pt being admited?: No Condition: Stable Instructions: Nonspecific Chest Pain, Adult, Shortness of Breath, Adult, Chest Pain (ED) Additional Instructions: Please follow-up with a primary care physician in the next few days. I am sending your contact information over to the [facility], and someone from their office should be contacting you shortly for close outpatient follow-up. Just in case, I am giving you a referral for one of their director print, Dr. Bennett. Return to the emergency department with any worsening of your symptoms, new or concerning symptoms not addressed during this current emergency department visit, or with any acute distress. Prescriptions: Albuterol Mdi (or & Nicu Only) [ProAir HFA Inhaler] 2 puff IH QID PRN #8.5 gram PRN Reason: Shortness Of Breath Referrals: PRIMARY CARE, [Primary Care Provider] - 2-3 Days [facility]ENNETT MD [Staff Physician] - 2-3 Days Time of Disposition: 04:28
--- NOTE | 2020-07-30 02:45 | XRay Report ---
CHEST 1 VIEW 07/30/2020 1:35 AM INDICATION / CLINICAL INFORMATION: Chest Pain. COMPARISON: 01/15/2019 FINDINGS: SUPPORT DEVICES: None. HEART / MEDIASTINUM: No significant abnormality. LUNGS / PLEURA: No significant pulmonary or pleural abnormality. No pneumothorax. ADDITIONAL FINDINGS: No significant additional findings. IMPRESSION: 1. No acute findings. Signer Name: Sameer Powell MD Signed: 07/30/2020 2:40 AM Workstation Name: [id number]
[2020-07-30 04:39] VITALS: BP 127/72
== END 2020-07-30 04:39 | disposition home or self-care (01) ==
LOC: ED 01:07
DX: R07.89 Other chest pain (principal); R06.02 Shortness of breath; I10 Essential (primary) hypertension; J45.909 Unspecified asthma, uncomplicated; F17.200 Nicotine dependence, unspecified, uncomplicated; Z90.49 Acquired absence of other specified parts of digestive tract; Z98.890 Other specified postprocedural states; Z79.1 Long term (current) use of non-steroidal anti-inflammatories (NSAID); Z79.899 Other long term (current) drug therapy; Z88.8 Allergy status to other drugs, medicaments and biological substances
CPT/HCPCS: 36415; 71045; 80048; 84484; 85025; 93005; 94640; 94644

== ENCOUNTER 2021-01-22 23:20 | Emergency (ER) | payer OTHER | END 2021-01-22 23:25 | disposition left against medical advice (07) | LOC: ED 23:20 ==

== ENCOUNTER 2021-03-21 13:49 | Emergency (ER) | payer OTHER ==
[2021-03-21 14:43] VITALS: BP 154/96
[2021-03-21] MEDS ORDERED: SODIUM CHLORIDE 0.9% 1000 ML 1,000 ML IV ONE (14:45)
[2021-03-21] MEDS ORDERED: MECLIZINE 25 MG TAB PO ONE (14:45)
--- NOTE | 2021-03-21 14:58 | Emergency Department Report ---
ED Dizziness HPI - General Chief Complaint: Dizziness Stated Complaint: DIZZINESS FOR 3 DAYS Time Seen by Provider: 03/21/21 14:39 Source: patient Mode of arrival: Ambulatory Limitations: No Limitations - History of Present Illness Initial Comments: This is a 46-year-old female nontoxic, well nourished in appearance, no acute signs of distress presents to the ED with c/o of dizziness x2 days. Patient denies any headache or head trauma. Patient stated the dizziness is worsened with position change. Patient denies any numbness, tingling, headache, stiff neck, chest pain, shortness of breathe, numbness or tingling. Denies any visual changes or blurry vision. Patient stated allergies to amoxicillin and trihydrate. MD Complaint: dizziness -: days(s) Timing: gradual onset Description: lightheadedness History of Same: Yes History of Trauma: No Severity: mild Improves With: rest Worsens With: position Associated Symptoms: denies other symptoms. denies: ataxia, chest pain, confusion, cough, diaphoresis, fever/chills, loss of appetite, malaise, rash, seizure, shortness of breath, syncope, weakness - Related Data Previous Rx's Medication Instructions Recorded Last Taken Type Acetaminophen/Codeine [Tylenol 1 tab PO Q6H PRN #14 tab 12/10/16 Unknown Rx /Codeine # 3 tab] Chlorhexidine Mouthwash [Peridex] 118 ml MM BID #1 bottle 12/10/16 Unknown Rx Clindamycin [Clindamycin CAP] 300 mg PO Q6H #28 capsule 12/10/16 Unknown Rx Ibuprofen [Motrin] 800 mg PO Q8HR PRN #30 tablet 12/10/16 Unknown Rx Naproxen [Naprosyn] 500 mg PO BID #20 tablet 01/15/19 Unknown Rx traMADoL [Ultram] 50 mg PO Q6HR PRN #7 tablet 01/15/19 Unknown Rx Butalb/Acetaminophen/Caffeine 1 cap PO Q8HR PRN #20 cap NS 04/23/20 Unknown Rx [Fioricet 50-300-40 mg CAP] Albuterol Mdi (or & Nicu Only) 2 puff IH QID PRN #8.5 gram 07/30/20 Unknown Rx [ProAir HFA Inhaler] Meclizine [Antivert] 25 mg PO Q12H PRN #12 tablet 03/21/21 Unknown Rx Allergies Allergy/AdvReac Type Severity Reaction Status Date / Time amoxicillin trihydrate AdvReac Swelling Verified 01/03/14 01:11 [From Amoxil] ED Review of Systems ROS: Stated complaint: DIZZINESS FOR 3 DAYS Other details as noted in HPI Comment: All other systems reviewed and negative Constitutional: denies: chills, fever Eyes: denies: eye pain, eye discharge, vision change ENT: denies: ear pain, throat pain Respiratory: denies: cough, shortness of breath, wheezing Cardiovascular: denies: chest pain, palpitations Endocrine: no symptoms reported Gastrointestinal: denies: abdominal pain, nausea, diarrhea Genitourinary: denies: urgency, dysuria, discharge Musculoskeletal: denies: back pain, joint swelling, arthralgia Skin: denies: rash, lesions Neurological: vertigo. denies: headache, weakness, numbness, paresthesias, confusion, abnormal gait Psychiatric: denies: anxiety, depression Hematological/Lymphatic: denies: easy bleeding, easy bruising ED Past Medical Hx - Past Medical History Hx Hypertension: Yes Hx Asthma: Yes Additional medical history: anemia - Surgical History Hx Cholecystectomy: Yes Additional Surgical History: D&C,TUBAL LIGATION - Social History Smoking Status: Current Every Day Smoker Substance Use Type: None - Medications Home Medications: Home Medications Medication Instructions Recorded Confirmed Last Taken Type Acetaminophen/Codeine [Tylenol 1 tab PO Q6H PRN #14 tab 12/10/16 Unknown Rx /Codeine # 3 tab] Chlorhexidine Mouthwash [Peridex] 118 ml MM BID #1 bottle 12/10/16 Unknown Rx Clindamycin [Clindamycin CAP] 300 mg PO Q6H #28 capsule 12/10/16 Unknown Rx Ibuprofen [Motrin] 800 mg PO Q8HR PRN #30 tablet 12/10/16 Unknown Rx Naproxen [Naprosyn] 500 mg PO BID #20 tablet 01/15/19 Unknown Rx traMADoL [Ultram] 50 mg PO Q6HR PRN #7 tablet 01/15/19 Unknown Rx Butalb/Acetaminophen/Caffeine 1 cap PO Q8HR PRN #20 cap NS 04/23/20 Unknown Rx [Fioricet 50-300-40 mg CAP] Albuterol Mdi (or & Nicu Only) 2 puff IH QID PRN #8.5 gram 07/30/20 Unknown Rx [ProAir HFA Inhaler] Meclizine [Antivert] 25 mg PO Q12H PRN #12 tablet 03/21/21 Unknown Rx ED Physical Exam - General Limitations: No Limitations General appearance: alert, in no apparent distress - Head Head exam: Present: atraumatic, normocephalic - Eye Eye exam: Present: normal appearance, PERRL, EOMI - ENT ENT exam: Present: normal exam, normal orophraynx - Neck Neck exam: Present: normal inspection, full ROM. Absent: tenderness, meningismus, lymphadenopathy - Respiratory Respiratory exam: Present: normal lung sounds bilaterally. Absent: respiratory distress, wheezes, rales, rhonchi, stridor, chest wall tenderness, accessory muscle use, decreased breath sounds, prolonged expiratory - Cardiovascular Cardiovascular Exam: Present: regular rate, normal rhythm, normal heart sounds. Absent: bradycardia, tachycardia, irregular rhythm, systolic murmur, diastolic murmur, rubs, gallop - GI/Abdominal GI/Abdominal exam: Present: soft. Absent: distended, tenderness - Extremities Exam Extremities exam: Present: normal inspection, full ROM, normal capillary refill. Absent: tenderness - Back Exam Back exam: Present: normal inspection, full ROM. Absent: tenderness, CVA tenderness (R), CVA tenderness (L), muscle spasm, paraspinal tenderness, vertebral tenderness, rash noted - Neurological Exam Neurological exam: Present: alert, oriented X3, normal gait - Expanded Neurological Exam Expanded Patient oriented to: Present: person, place, time Cranial nerves: EOM's Intact: Normal, Facial Sensation: Normal Cerebellar function: Finger to Nose: Normal Upper motor neuron: Pronator Drift: Normal, Sensory Extinction: Normal Motor strength exam: RUE: 5, LUE: 5, RLE: 5, LLE: 5 Best Eye Response ([place]): (4) open spontaneously Best Motor Response ([place]): (6) obeys commands Best Verbal Response ([place]): (5) oriented [place] Total: 15 - Psychiatric Psychiatric exam: Present: normal affect, normal mood - Skin Skin exam: Present: warm, dry, intact, normal color. Absent: rash ED Course Vital Signs 03/21/21 14:42 Temperature 98.8 F Pulse Rate 86 Respiratory 12 Rate Blood Pressure 154/96 [Left] O2 Sat by Pulse 99 Oximetry - Reevaluation(s) Reevaluation #1: 03/21/21 15:00 Patient is speaking in full sentences with no signs of distress noted. Reevaluation #2: 03/21/21 17:35 Patient stated dizziness has resolved after treatment. Awaiting for repeat orthostatics and if within normal limits will dispo patient with follow-up. ED Medical Decision Making - Lab Data Result diagrams: 03/21/21 14:51 03/21/21 14:51 Lab Results 03/21/21 03/21/21 03/21/21 Range/Units 14:51 14:51 14:51 WBC 5.9 (4.5-11.0) K/mm3 RBC 4.38 (3.65-5.03) M/mm3 Hgb 10.8 (10.1-14.3) gm/dl Hct 31.1 (30.3-42.9) % MCV 71 L (79-97) fl MCH 25 L (28-32) pg MCHC 35 H (30-34) % RDW 21.3 H (13.2-15.2) % Plt Count 257 (140-440) K/mm3 Lymph % (Auto) 33.2 (13.4-35.0) % Bonner % (Auto) 8.8 H (0.0-7.3) % Eos % (Auto) 1.1 (0.0-4.3) % Baso % (Auto) 0.6 (0.0-1.8) % Lymph # (Auto) 1.9 (1.2-5.4) K/mm3 Bonner # (Auto) 0.5 (0.0-0.8) K/mm3 Eos # (Auto) 0.1 (0.0-0.4) K/mm3 Baso # (Auto) 0.0 (0.0-0.1) K/mm3 Seg Neutrophils % 56.3 (40.0-70.0) % Seg Neutrophils # 3.3 (1.8-7.7) K/mm3 Sodium 138 (137-145) mmol/L Potassium 4.0 (3.6-5.0) mmol/L Chloride 106.6 (98-107) mmol/L Carbon Dioxide 27 (22-30) mmol/L Anion Gap 8 mmol/L BUN 6 L (7-17) mg/dL Creatinine 0.6 (0.6-1.2) mg/dL Estimated GFR > 60 ml/min BUN/Creatinine Ratio 10 % Glucose 87 (65-100) mg/dL Calcium 9.1 (8.4-10.2) mg/dL Total Bilirubin 0.30 (0.1-1.2) mg/dL AST 14 (5-40) units/L ALT 12 (7-56) units/L Alkaline Phosphatase 83 (35-129) units/L Total Protein 7.8 (6.3-8.2) g/dL Albumin 4.1 (3.9-5) g/dL Albumin/Globulin Ratio 1.1 % HCG, Qual Negative (Negative) - EKG Data 03/21/21 17:46 Normal sinus rhythm at [address] or T wave abnormalities. Reviewed and signed by MD - Medical Decision Making This is a 46-year-old female that presents with dizziness. Patient is stable and was examined by me. EKG is normal sinus rhythm with no ST abnormalities. Labs are unremarkable. Urine obtained. Orthostatic vital signs obtained and within normal limits. Patient received 1 L of normal saline and Antivert which she stated her symptoms of dizziness has subsided and resolved. Patient is neurologically stable. Patient was instructed to Follow-up with a primary care doctor in 3-5 days or if symptoms worsen and continue return to emergency room as soon as possible. At time of discharge, the patient does not seem toxic or ill in appearance. No acute signs of distress noted. Patient agrees to discharge treatment plan of care. No further questions noted by the patient. Critical care attestation.: If time is entered above; I have spent that time in minutes in the direct care of this critically ill patient, excluding procedure time. ED Disposition Clinical Impression: Dizziness Disposition: 01 HOME / SELF CARE / HOMELESS Is pt being admited?: No Does the pt Need Aspirin: No Condition: Stable Instructions: Dizziness, [id number] Additional Instructions: Follow-up with a primary care doctor in 3-5 days or if symptoms worsen and continue return to emergency room as soon as possible. My follow Prescriptions: Meclizine [Antivert] 25 mg PO Q12H PRN #12 tablet PRN Reason: Vertigo Referrals: PRIMARY CARE, [Primary Care Provider] - 3-5 Days CARBUCCIA,JUSTIN, MD [Staff Physician] - 3-5 Days Time of Disposition: 17:47
[2021-03-21 15:03] LABS: Basophils % (Auto) 0.6 % (0.0-1.8); Eosinophils # (Auto) 0.1 K/mm3 (0.0-0.4); Eosinophils % (Auto) 1.1 % (0.0-4.3); Hematocrit 31.1 % (30.3-42.9); Hemoglobin 10.8 gm/dl (10.1-14.3); Lymphocytes # (Auto) 1.9 K/mm3 (1.2-5.4); Lymphocytes % (Auto) 33.2 % (13.4-35.0); Mean Corpuscular HGB Conc 35 % (30-34); Mean Corpuscular Volume 71 fl (79-97); Monocytes # (Auto) 0.5 K/mm3 (0.0-0.8); Monocytes % (Auto) 8.8 % (0.0-7.3); Platelet Count 257 K/mm3 (140-440); Red Blood Count 4.38 M/mm3 (3.65-5.03)
[2021-03-21 15:23] LABS: Alanine Aminotransferase 12 units/L (7-56); Albumin 4.1 g/dL (3.9-5); Blood Urea Nitrogen 6 mg/dL (7-17); Calcium 9.1 mg/dL (8.4-10.2); Hemolysis Index 5
[2021-03-21 15:26] LABS: BUN/Creatinine Ratio 10
[2021-03-21 15:35] LABS: Red Cell Distribution Width 21.3 % (13.2-15.2)
== END 2021-03-21 18:26 | disposition home or self-care (01) ==
LOC: ED 13:49
DX: R42 Dizziness and giddiness (principal); I10 Essential (primary) hypertension; J45.909 Unspecified asthma, uncomplicated; F17.200 Nicotine dependence, unspecified, uncomplicated; Z90.49 Acquired absence of other specified parts of digestive tract; Z98.51 Tubal ligation status; Z88.1 Allergy status to other antibiotic agents; Z79.899 Other long term (current) drug therapy
CPT/HCPCS: 36415; 80053; 84703; 85025; 93005; 96360; 99283; J7030

== ENCOUNTER 2021-10-05 00:57 | Emergency (ER) | payer OTHER ==
[2021-10-05] MEDS ORDERED: ONDANSETRON 4 MG ODT TAB PO ONE (03:40)
[2021-10-05] MEDS ORDERED: KETOROLAC 30 MG/1 ML INJ IM ONE (03:40)
[2021-10-05] MEDS ORDERED: HYDROcodone/ACETAMINOPHEN 5-325 MG TAB PO ONE (03:40)
--- NOTE | 2021-10-05 04:11 | XRay Report ---
. LEFT RIBS 3 VIEWS INDICATION / CLINICAL INFORMATION: FALL - LEFT RIB PAIN. COMPARISON: None available. FINDINGS: RIBS: No acute, displaced fracture or other acute abnormality. LUNGS: No acute findings. No pneumothorax. Signer Name: Rogers Kerr MD Signed: 10/05/2021 4:06 AM Workstation Name: [id number]
--- NOTE | 2021-10-05 04:27 | Emergency Department Report ---
ED Fall HPI - General Chief Complaint: Fall Stated Complaint: FELL OUT OF BED/RIB PAIN Source: patient Mode of arrival: Ambulatory - History of Present Illness Initial Comments: Patient is a 46-year-old -[place] female with a history of hypertension, iron deficiency anemia and asthma who presents to the ED with complaint of acute onset left lateral rib pain and chest wall pain after she slipped and fell off the bed about 4 hours ago while sleeping. Patient states that she landed on the left side and since then she has not been able to move because of persistent pain on the left ribs. Patient denies dizziness, syncope, loss of consciousness, head or neck injuries, hemoptysis, cough, shortness of breath, abdominal pain, nausea and vomiting or seizures. MD Complaint: fall, other (left lateral rib pain) -: Sudden, hour(s) (4) Fall From: out of bed When Fall Occurred: 4-6 hours [employer] Fall Witnessed: yes, by family Place Fall Occurred: home Loss of Consciousness: none Prolonged Down Time?: no Symptoms Prior to Fall: none Location: chest (left chest wall) - Related Data Previous Rx's Medication Instructions Recorded Last Taken Type Acetaminophen/Codeine [Tylenol 1 tab PO Q6H PRN #14 tab 12/10/16 Unknown Rx /Codeine # 3 tab] Chlorhexidine Mouthwash [Peridex] 118 ml MM BID #1 bottle 12/10/16 Unknown Rx Clindamycin [Clindamycin CAP] 300 mg PO Q6H #28 capsule 12/10/16 Unknown Rx traMADoL [Ultram] 50 mg PO Q6HR PRN #7 tablet 01/15/19 Unknown Rx Butalb/Acetaminophen/Caffeine 1 cap PO Q8HR PRN #20 cap NS 04/23/20 Unknown Rx [Fioricet 50-300-40 mg CAP] Albuterol Mdi (or & Nicu Only) 2 puff IH QID PRN #8.5 gram 07/30/20 Unknown Rx [ProAir HFA Inhaler] Meclizine [Antivert] 25 mg PO Q12H PRN #12 tablet 03/21/21 Unknown Rx Naproxen [Naprosyn TAB] 500 mg PO Q12H PRN #30 tablet 10/05/21 Unknown Rx Allergies Allergy/AdvReac Type Severity Reaction Status Date / Time amoxicillin trihydrate AdvReac Swelling Verified 01/03/14 01:11 [From Amoxil] ED Review of Systems ROS: Stated complaint: FELL OUT OF BED/RIB PAIN Other details as noted in HPI Constitutional: denies: chills, fever Eyes: denies: eye pain, eye discharge, vision change ENT: denies: ear pain, throat pain Respiratory: denies: cough, shortness of breath, wheezing Cardiovascular: chest pain (Left lateral rib and chest wall pain). denies: palpitations Endocrine: no symptoms reported Gastrointestinal: denies: abdominal pain, nausea, vomiting, diarrhea Genitourinary: denies: urgency, dysuria, discharge Musculoskeletal: denies: back pain, joint swelling, arthralgia Skin: denies: rash, lesions Neurological: denies: headache, weakness, paresthesias Psychiatric: denies: anxiety, depression Hematological/Lymphatic: denies: easy bleeding, easy bruising ED Past Medical Hx - Past Medical History Previous Medical History?: No Hx Hypertension: Yes Hx Asthma: Yes Additional medical history: anemia - Surgical History Past Surgical History?: No Hx Cholecystectomy: Yes Additional Surgical History: D&C,TUBAL LIGATION - Social History Smoking Status: Current Every Day Smoker Substance Use Type: Alcohol - Medications Home Medications: Home Medications Medication Instructions Recorded Confirmed Last Taken Type Acetaminophen/Codeine [Tylenol 1 tab PO Q6H PRN #14 tab 12/10/16 Unknown Rx /Codeine # 3 tab] Chlorhexidine Mouthwash [Peridex] 118 ml MM BID #1 bottle 12/10/16 Unknown Rx Clindamycin [Clindamycin CAP] 300 mg PO Q6H #28 capsule 12/10/16 Unknown Rx traMADoL [Ultram] 50 mg PO Q6HR PRN #7 tablet 01/15/19 Unknown Rx Butalb/Acetaminophen/Caffeine 1 cap PO Q8HR PRN #20 cap NS 04/23/20 Unknown Rx [Fioricet 50-300-40 mg CAP] Albuterol Mdi (or & Nicu Only) 2 puff IH QID PRN #8.5 gram 07/30/20 Unknown Rx [ProAir HFA Inhaler] Meclizine [Antivert] 25 mg PO Q12H PRN #12 tablet 03/21/21 Unknown Rx Naproxen [Naprosyn TAB] 500 mg PO Q12H PRN #30 tablet 10/05/21 Unknown Rx ED Physical Exam - General Limitations: No Limitations General appearance: alert, in no apparent distress - Head Head exam: Present: atraumatic, normocephalic, normal inspection - Eye Eye exam: Present: normal appearance, PERRL, EOMI Pupils: Present: normal accommodation - ENT ENT exam: Present: normal exam, normal orophraynx, mucous membranes moist, TM's normal bilaterally, normal external ear exam - Neck Neck exam: Present: normal inspection, full ROM. Absent: tenderness - Respiratory Respiratory exam: Present: normal lung sounds bilaterally, chest wall tenderness (Palpable reproducible left lateral chest rib and chest tenderness). Absent: respiratory distress, wheezes, rales, rhonchi, accessory muscle use, decreased breath sounds, prolonged expiratory - Cardiovascular Cardiovascular Exam: Present: regular rate, normal rhythm, normal heart sounds. Absent: systolic murmur, diastolic murmur, rubs, gallop - GI/Abdominal GI/Abdominal exam: Present: soft, normal bowel sounds. Absent: tenderness, guarding, rebound, hyperactive bowel sounds, hypoactive bowel sounds, organomegaly - Extremities Exam Extremities exam: Present: normal inspection, full ROM, normal capillary refill - Back Exam Back exam: Present: normal inspection, full ROM. Absent: tenderness, CVA tenderness (R), CVA tenderness (L), muscle spasm, paraspinal tenderness, ema tebral tenderness - Neurological Exam Neurological exam: Present: alert, oriented X3, CN II-XII intact, normal gait, reflexes normal - Psychiatric Psychiatric exam: Present: normal affect, normal mood - Skin Skin exam: Present: warm, dry, intact, normal color. Absent: rash ED Course Vital Signs 10/05/21 04:47 Pulse Rate 88 Respiratory 12 Rate Blood Pressure 126/78 [Left] O2 Sat by Pulse 98 Oximetry ED Medical Decision Making - Radiology Data Radiology results: report reviewed, image reviewed - Medical Decision Making This is a 46-year-old -[place] female with a history of hypertension, iron deficiency anemia and asthma who presents to the ED with complaint of acute onset left lateral rib pain and chest wall pain after she slipped and fell off the bed about 4 hours ago while sleeping. Patient states that she landed on the left side and since then she has not been able to move because of persistent pain on the left ribs. In the ED, patient is alert and oriented x3 and is not in any distress. Patient was treated for pain in the ED. Left rib and chest x- ray showed no acute rib fractures or subluxations, pneumothorax, pleural effusion or any cardiopulmonary abnormalities or pneumonitis. On reevaluation, patient's pain is well controlled medication. Patient will discharge home on pain medications and advised to follow-up with her primary care physician in 7 to 10 days for reevaluation or return to the ED immediately if symptoms get worse. - Differential Diagnosis Rib fracture; chest contusion; rib contusion; muscle strain; Critical care attestation.: If time is entered above; I have spent that time in minutes in the direct care of this critically ill patient, excluding procedure time. ED Disposition Clinical Impression: Contusion of rib on left side Qualifiers: Encounter type: initial encounter Qualified Code(s): S20.212A - Contusion of left front wall of thorax, initial encounter Contusion of left chest wall Qualifiers: Encounter type: initial encounter Qualified Code(s): S20.212A - Contusion of left front wall of thorax, initial encounter Disposition: 01 HOME / SELF CARE / HOMELESS Is pt being admited?: No Does the pt Need Aspirin: No Condition: Stable Instructions: Chest Wall Pain, [id number], Contusion, [id number], Rib Contusion Additional Instructions: Left rebound chest x-ray showed no acute rib fractures, pneumothorax, pleural effusion or any other acute cardiopulmonary abnormalities or pneumonitis. Therefore take medication with food, drink plenty of fluids and follow-up with your primary care physician in 7 to 10 days for reevaluation. Return to the ED immediately if symptoms get worse. Prescriptions: Naproxen [Naprosyn TAB] 500 mg PO Q12H PRN #30 tablet PRN Reason: Pain , Severe (7-10) Referrals: [facility] [place] [Provider Group] - 7-10 days Forms: Work/School Release Form(ED) Time of Disposition: 04:25 Print Language: THAI
[2021-10-05 04:48] VITALS: BP 126/78
== END 2021-10-05 05:44 | disposition home or self-care (01) ==
LOC: ED 00:57
DX: S20.212A Contusion of left front wall of thorax, initial encounter (principal); F17.200 Nicotine dependence, unspecified, uncomplicated; F10.20 Alcohol dependence, uncomplicated; I10 Essential (primary) hypertension; J45.909 Unspecified asthma, uncomplicated; Z88.0 Allergy status to penicillin; W19.XXXA Unspecified fall, initial encounter; Y93.89 Activity, other specified; Y92.89 Other specified places as the place of occurrence of the external cause; Y99.8 Other external cause status
CPT/HCPCS: 71101; 96372; 99283; J1885; J3490; Q0162

== ENCOUNTER 2022-03-30 06:04 | Day surgery (SDC) | payer OTHER ==
[2022-03-24 10:19] LABS: Hematocrit 29.1 % (30.3-42.9); Hemoglobin 9.6 gm/dl (10.1-14.3); Mean Corpuscular HGB Conc 33 % (30-34); Platelet Count 214 K/mm3 (140-440); Red Blood Count 4.41 M/mm3 (3.65-5.03)
[2022-03-24 10:26] LABS: Mean Corpuscular Volume 66 fl (79-97)
[2022-03-24 10:27] LABS: Red Cell Distribution Width 22.7 % (13.2-15.2)
[2022-03-24 10:36] LABS: Blood Urea Nitrogen 5 mg/dL (7-17); Calcium 9.2 mg/dL (8.4-10.2); Hemolysis Index 0
[2022-03-24 10:37] LABS: BUN/Creatinine Ratio 7
--- NOTE | 2022-03-24 17:03 | Anesthesia Consultation ---
Anesthesia Consult and Med Hx Date of service: 03/30/22 - Airway Anesthetic Teeth Evaluation: Poor, Chipped (lower), Dentures (Upper), Edentulous (Upper) ROM Head & Neck: Adequate Mental/Hyoid Distance: Adequate Mallampati Class: Class II Intubation Access Assessment: Good - Pre-Operative Health Status ASA Pre-Surgery Classification: ASA2 Proposed Anesthetic Plan: General Nerve Block: TAP - Pulmonary Hx Smoking: Yes (1/4 PPD X 25 YRS) Hx Asthma: Yes (DAILY AND PRN INHALERS) Hx Respiratory Symptoms: No (+2FS) Hx Sleep Apnea: No (RAJAN PRE SCREEN LOW RISK) - Cardiovascular System Hx Hypertension: No - Central Nervous System Hx Psychiatric Problems: No - Gastrointestinal Hx Gastroesophageal Reflux Disease: No - Hematic Hx Anemia: Yes (WITH LOW IRON LEVELS) - Other Systems Hx Cancer: No Hx Obesity: No
[~2022-03-30 06:04] MED LIST: ACETAMINOPHEN 500 MG TAB PO ONE; CELECOXIB 200 MG CAP PO NR; LACTATED RINGERS 1,000 ML IV SCH; MAGNESIUM OXIDE 400 MG TAB PO ONE; MIDAZOLAM 2 MG/2 ML INJ IV NR; SCOPOLAMINE TRANSDERMAL PATCH 72 HR TD NR; fentaNYL 100 MCG/2 ML INJ IV ONE
[2022-03-30] MEDS ORDERED: BACTERIOSTATIC SODIUM CHLORIDE 0.9% 30 ML VIAL INFILTRATI ONE (06:59)
[2022-03-30] MEDS ORDERED: fentaNYL 100 MCG/2 ML INJ ONE (07:24)
[2022-03-30] MEDS ORDERED: LIDOCAINE MPF (2%) 20 MG/1 ML VIAL 5 ML ONE (07:24)
[2022-03-30] MEDS ORDERED: ROCURONIUM 50 MG/5 ML INJ IV ONE (07:24)
[2022-03-30] MEDS ORDERED: propofoL 200 MG/20 ML VIAL IV ONE (07:24)
[2022-03-30] MEDS ORDERED: NEOMY 40 MG/POLYMYXIN B 200,000 UNITS/ML (GU) AMPULE IR ONE ×2 (07:33→09:56)
[2022-03-30] MEDS ORDERED: dexAMETHasone 4 MG/ML VIAL ONE (07:34)
[2022-03-30] MEDS ORDERED: BUPIVACAINE/PF (0.25%) 2.5 MG/ML 30 ML VIAL INFILTRATI ONE (07:34)
[2022-03-30] MEDS ORDERED: ONDANSETRON 4 MG/2 ML INJ IV PRN (07:36)
[2022-03-30] MEDS ORDERED: HYDROmorphone 0.5 MG/0.5 ML INJ IV PRN (07:36)
--- NOTE | 2022-03-30 07:36 | Anesthesia Day of Surgery ---
Anesthesia Day of Surgery - Day of Surgery Patient Examined: Yes Patient H&P Reviewed: Yes Patient is NPO: Yes
--- NOTE | 2022-03-30 07:40 | Short Stay Summary ---
Short Stay Documentation Date of service: 03/30/22 Narrative H&P: 47-year-old G 14 [id number] with a history of cervical dysplasia and uterine fibroids. The patient reports a history of menorrhagia. She had a pelvic ultrasound that demonstrated findings of a leiomyoma measuring 2.5 cm with an overall uterine length of 9.8 cm. The patient is elected to undergo definitive surgical management. - History Principal diagnosis: Cervical dysplasia; menorrhagia Past Medical History: other (Uterine fibroid) Past Surgical History: cholecystectomy, Other (Salpingectomy for ectopic ) Social history: single, smoking - Allergies and Medications Current Medications: Allergies amoxicillin trihydrate [From Amoxil] Adverse Reaction (Verified 01/03/14 01:11) Swelling Home Medications Medication Instructions Recorded Confirmed Last Taken Type Albuterol Mdi (or & Nicu Only) 2 puff IH QID PRN #8.5 gram 07/30/20 03/23/22 Unknown Rx [ProAir HFA Inhaler] Tiotropium [place] [Spiriva 1 puff IH DAILY 03/24/22 03/24/22 Unknown History Respimat] Active Medications Celecoxib (Celecoxib 200 Mg Cap) 400 mg PO PREOP NR Stop: 03/30/22 23:59 Hydromorphone HCl (Hydromorphone 0.5 Mg/0.5 Ml Inj) 0.5 mg IV Q10MIN PRN PRN Reason: Pain , Severe (7-10) Stop: 03/30/22 23:59 Lactated Ringer's (Lactated Ringers) 1,000 mls @ 125 mls/hr IV DIRECT ASHU Midazolam HCl (Midazolam 2 Mg/2 Ml Inj) 2 mg IV PREOP NR Stop: 03/30/22 23:59 Ondansetron HCl (Ondansetron 4 Mg/2 Ml Inj) 4 mg IV ONCE PRN PRN Reason: Nausea And Vomiting Stop: 03/30/22 23:59 Oxycodone/Acetaminophen (Oxycodone /Acetaminophen 5-325mg Tab) 1 tab PO ONCE PRN PRN Reason: Pain, Moderate (4-6) Scopolamine (Scopolamine Transdermal Patch 72 Hr) 1 each TD PREOP NR Stop: 03/30/22 23:59 - Physical exam General appearance: no acute distress Integumentary: no rash HEENT: Atraumatic Lungs: Clear to auscultation Breasts: deferred Heart: Regular rate Gastrointestinal: normal - Brief post op/procedure progress note Date of procedure: 03/30/22 Pre-op diagnosis: Dysfunctional uterine bleeding Post-op diagnosis: same Procedure: Robotic hysterectomy and bilateral salpingo-oophorectomy Anesthesia: DANITZA Surgeon: OLGA QUIROS Estimated blood loss: other (100 mL) Pathology: list (Uterus, cervix, bilateral tubes and ovaries) Specimen disposition: to lab Condition: stable - Hospital course Hospital course: The patient was admitted the day of surgery underwent a robotic hysterectomy and bilateral salpingo-oophorectomy. Please see operative note for details of surgery. Her postoperative course was uneventful. - Disposition Condition at discharge: Good Disposition: 01 HOME / SELF CARE / HOMELESS Short Stay Discharge Plan Activity: other (Pelvic rest for 6 weeks) Diet: regular Additional Instructions: Pelvic rest for 6 weeks Schedule follow-up with Dr. Quiros in [address] in 2 weeks No tub baths for 4 weeks but patient may shower
[2022-03-30] MEDS ORDERED: oxyCODONE /ACETAMINOPHEN 5-325MG TAB PO NR (08:00)
[2022-03-30] MEDS ORDERED: ceFAZolin/Water 2 GM/20 ML 2 GM/20 ML SYRINGE IV NR (08:00)
[2022-03-30] MEDS ORDERED: NEOSTIGMINE 10MG/10 ML INJ MDV ONE (09:44)
[2022-03-30] MEDS ORDERED: ONDANSETRON 4 MG/2 ML INJ ONE (09:44)
[2022-03-30] MEDS ORDERED: GLYCOPYRROLATE 0.4 MG/2 ML INJ ONE (09:44)
[2022-03-30] MEDS ORDERED: dexAMETHasone 20 MG/5 ML VIAL ONE (09:44)
[2022-03-30] MEDS ORDERED: SODIUM CHLORIDE 0.9% IRR 1,500 ML BOTTLE IR ONE (09:56)
[2022-03-30] MEDS ORDERED: SODIUM CHLORIDE 0.9% IRRIG SOLN 2000 ML IR ONE (09:56)
--- NOTE | 2022-03-30 10:26 | Operative Report ---
Operative Report Operative Report: Date of surgery: March 30, 2022 Preoperative diagnoses: Dysfunctional uterine bleeding; uterine fibroids Postoperative diagnoses: Same as above Procedure: Robotic hysterectomy and bilateral salpingo-oophorectomy Surgeon: Mikaela Dang M.D. Pawn Broker:Dr Burnett Anesthesia: Gen. endotracheal anesthesia Estimated blood loss: 100 mL Pathology: Uterus, cervix, bilateral tubes and ovaries Indication: 47-year-old G 14 [id number] with a history of dysfunctional uterine bleeding has been unresponsive to medical management. The patient is elected for definitive surgical management Procedure: The patient was taken to the operating room and given general endotracheal anesthesia without complication. She is prepped and draped in a normal sterile fashion. A bivalve speculum was placed in the patient's vagina and a single- tooth tenaculum placed on the anterior lip of the cervix. The uterus was sounded with the uterine sound. A stay suture was placed at 12 o'clock on the ectocervix. A Livestation uterine manipulator was placed in the bivalve speculum was then removed. Attention was then turned to the patient's abdomen where a 8 millimeter supra umbilical skin incision was then made. A Veress needle was placed and peritoneal entry was verified water-filled syringe. Insufflation of the peritoneal cavity was performed with CO2 gas. The 8 mm trocar was then placed under direct visualization. An additional 8 mm trocar was placed on the patient's left and right lateral side just opposite of the supraumbilical trocar. An additional 5 mm right lateral trocar was then placed as the accessory port. The patient was then placed in steep Trendelenburg. The da Jose F robot was then engaged. A fenestrated forcep was placed in arm 2 and a vessel sealer was placed in arm 1. The surgeon then transferred to the surgical console. General survey revealed mildly enlarged uterus with evidence of bilateral ovarian cysts. The infundibulopelvic ligament was then isolated on the right. The vessel sealer was used to coagulate the ligament which was then transected. The tube and ovary were transected from the supply. The round ligament was then coagulated and transected also. The vesicouterine peritoneum was then entered from the patient's right side. The uterine vessels were then coagulated with the vessel sealer. The vessels were then transected . Attention was then turned to the patient's left side where the infundibulopelvic ligament and mesosalpinx were again isolated coagulated and transected. The vesical peritoneum was then entered from the left and joined in the midline. Peritoneum was reflected off of the lower uterine segment. Uterine vessels were then coagulated and then transected. The blood supply to the uterus was adequately contained, a posterior colpotomy was made. The V care ring was visualized. Posterior colpotomy was created with the monopolar scissors. The incision was continued circumferentially until anterior colpotomy was made. The cervix and uterus were amputated from the vaginal cuff. The uterus was then removed along with the tubes and ovaries bilaterally through the vagina and a warm laparotomy sponge was placed and maintain the pneumoperitoneum. The vaginal cuff was then closed in a running fashion with V lock suture. I rrigation of the pelvis was performed. Surgicel powder was applied to the incision. The skin was then reapproximated with 4-0 Monocryl. The tissue was sent to pathology which included the cervix, uterus, tubes and ovaries. The patient was then successfully extubated. She was then taken to the recovery room in stable condition. All sponge laps and needle counts were correct x2.
[2022-03-30 13:21] VITALS: BP 140/91
--- NOTE | 2022-03-30 14:04 | Post Anesthesia Evaluation ---
- Post Anesthesia Evaluation Patient Participated: Yes Airway Patent: Yes Stable Respiratory Function: Yes Nausea/Vomiting: No Temp > 96.8F: Yes Pain Manageable: Yes Adequeate Hydration: Yes Anesthesia Complications: No
== END 2022-03-30 12:28 | disposition home or self-care (01) ==
LOC: OR 06:04
PROVIDERS: ATTEND Obstetrics & Gynecology
DX: N93.8 Other specified abnormal uterine and vaginal bleeding (principal); N80.0 Endometriosis of uterus; N83.01 Follicular cyst of right ovary; J45.909 Unspecified asthma, uncomplicated; D64.9 Anemia, unspecified; F17.210 Nicotine dependence, cigarettes, uncomplicated; Z79.899 Other long term (current) drug therapy; Z98.890 Other specified postprocedural states; Z90.49 Acquired absence of other specified parts of digestive tract; Z98.51 Tubal ligation status
CPT/HCPCS: 36415; 58552; 64488; 80048; 84703; 85027; 86850; 86870; 86900; 86901; 88307; J0690; J1100; J1170; J1815; J2250; J2405; J2704; J2710; J3010; J3490; J7120; S2900; 64450